=== PATIENT | female | born 1985 | race Caucasian/White ===

== ENCOUNTER → 2016-11-21 | Observation (INO) ==
[2016-11-20 20:49] VITALS: BP 137/64
--- NOTE | 2016-11-20 21:11 | OB/GYN History & Physical ---
Date of Encounter: 11/20/16 Time of Encounter: 21:05 Assessment and Plan (1) 40 weeks gestation of Current visit: Yes Status: Acute (2) Uterine contractions during Current visit: Yes Status: Acute Pt desires natural labor. Will allow pt to ambulate and sit on birthing ball. Repeat SVE 1-2 hours. Anticipate admission if cervical change. Will discharge home with precautions if no change. (3) NST (non-stress test) reactive Current visit: Yes Status: Acute History of Present Illness Chief complaint: contractions HPI: Ms. Apple is a 31 year old female [id number] presenting at 40w2d with c/o contractions every 3-5 minutes. She reports the contractions woke her this am and have gotten closer and stronger throughout the day. She denies any other complaints including LOF or VB. Good FM. Blood type O positive. Serologies negative. Rubella immune. GBS negative. Pt desires a natural . Past Med Surg Social Fam HX - Past Medical History Medical history: non-contributory Psychiatric history: no psych history - Past Surgical History Surgical History: no surgical history - Social History Smoking Status: Current every day smoker Packs per day: 1/2 pack Smokeless Tobacco Status: No Alcohol use: occasionally Drug use: none - Family History Sister Hx Family Endocrine Disorder: Yes (Type 2 Diabetic) Obstetrical History - Pregnancies : 4 Para: 1 Ab's: 2 Livin Medications and Allergies Vit/Iron Fumarate/FA [ Tablet] 1 each PO DAILY 11/20/16 [ History] 3 Allergy/AdvReac Type Severity Reaction Status Date / Time No Known Allergies Allergy Verified 11/20/16 20:33 Review of System OB All systems PM: reviewed and no additional remarkable complaints except as stated Exam - Vital Signs Vital signs: Initial Vital Signs Temp Pulse Resp BP 96.7 F L 87 18 137/64 11/20/16 20:47 11/20/16 20:47 11/20/16 20:47 11/20/16 20:47 - Constitutional Constitutional: well developed, well nourished, mild distress - HEENT HEENT: Mucus Membranes Moist - Lungs Respiratory exam: CTAB - Cardiovascular Cardiovascular exam: RRR - Abdomen Abdomen: Present: gravid, non tender - Extremities Extremities exam: normal inspection (mild edema bilateral LE) - Vulva Vulva: bilateral: normal - Vagina Vagina: Present: normal moisture - Cervix Dilation: 4 (per RN) - Uterus Uterus exam: Present: normal size - Anus/Rectum Anus/Rectum: Present: normal perianal skin Results All other labs normal. - VTE Reasons for not Prescribing Prophylaxis: Treatment not Indicated - Low risk for VTE
[2016-11-20 22:20] LABS: Amphetamine Screen,Urine Negative ng/mL (Cutoff=1000); Barbiturate Screen,Urine Negative ng/mL (Cutoff=200); Benzodiazepines Screen,Urine Negative ng/mL (Cutoff=200); Cannabinoid Screen,Urine Negative ng/mL (Cutoff = 50); Cocaine Screen,Urine Negative ng/mL (Cutoff= 300); Opiate Screen,Urine Negative ng/mL (Cutoff=300); Phencyclidine Screen,Urine Negative ng/mL (Cutoff=25)
== END | disposition home or self-care (01) ==
LOC: 1NENULAB
PROVIDERS: ADMIT Obstetrics & Gynecology; ATTEND Obstetrics & Gynecology